=== PATIENT | male | born 1950 | race Caucasian/White ===

== ENCOUNTER 2018-05-18 04:53 | Emergency (ER) | payer OTHER ==
[~2018-05-18] VITALS: Ht 182.9 cm; Wt 75.8 kg
[~2018-05-18 04:53] MED LIST: ASPIR-LOW 81 MG81 MG PO; PRAVACHOL40 MG PO
[2018-05-18] MEDS ORDERED: CRESTOR5 MG PO (05:07)
[2018-05-18] MEDS ORDERED: MICARDIS40 MG PO (05:07)
[2018-05-18] MEDS ORDERED: VITAMIN B-12500 MCG PO (05:08)
[2018-05-18 05:19] LABS: URINE BILIRUBIN NEGATIVE (Negative); URINE BLOOD NEGATIVE (Negative); URINE CLARITY CLEAR; URINE COLOR YELLOW; URINE GLUCOSE-RANDOM* NEGATIVE (Negative); URINE KETONES NEGATIVE (Negative); URINE LEUKOCYTES-REFLEX NEGATIVE (Negative); URINE NITRITE-REFLEX NEGATIVE (Negative); URINE PROTEIN (DIPSTICK) NEGATIVE (Negative); URINE UROBILINOGEN 0.2 E.U./dl (0.2-1.0)
[2018-05-18 05:23] LABS: ABSOLUTE NEUTROPHILS 6.1 thou/uL (1.4-8.2); BASOPHILS 0.5 % (0.0-2.0); EOSINOPHILS 3.3 % (0.0-3.0); HEMATOCRIT 43.6 % (42.0-52.0); HEMOGLOBIN 15.1 gm/dL (14.0-18.0); LYMPHOCYTES 21.1 % (24.0-44.0); MCH 33.1 pg (26.0-34.0); MCHC 34.7 g/dL (28.0-37.0); MCV 95.4 fL (80.0-100.0); MONOCYTES 7.1 % (1.0-8.0); PLATELET COUNT 137 thou/uL (150-400); RBC 4.57 mil/uL (4.50-6.00); RDW 13.4 % (10.5-14.5); WBC 8.9 thou/uL (4.0-11.0)
[2018-05-18 05:32] LABS: CREATININE 1.4 mg/dL (0.7-1.3); POTASSIUM 4.2 mmol/L (3.5-5.1)
[2018-05-18 05:37] LABS: ALBUMIN 4.4 g/dL (3.4-5.0); TOTAL BILIRUBIN 0.7 mg/dL (<0.1-1.0); TOTAL PROTEIN 7.6 g/dL (6.4-8.2)
[2018-05-18] MEDS ORDERED: TORADOL 10 MG T10 MG PO (06:59)
[2018-05-18] MEDS ORDERED: FLOMAX0.4 MG PO (06:59)
[2018-05-18] MEDS ORDERED: ZOFRAN ODT4 MG DISSOLVE (07:03)
[2018-05-18 07:25] VITALS: BP 139/67
--- NOTE | 2018-05-19 21:58 | EKG ---
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 : 1950 Requested By: Leo Leos Order Number: [id number] MD: Manny Campuzano Measurements Intervals [place] Rate: 54 P: 100 NH: 212 QRS: 54 QRSD: 95 T: 69 QT: 468 QTc: 444 Interpretive Statements Sinus rhythm Borderline prolonged NH interval Probable left atrial enlargement Left ventricular hypertrophy Compared to ECG 06/17/2009 18:00:53 Electronically Signed On 05-19-2018 21:57:45 [employer] by Manny Campuzano [email or web address] <ELECTRONICALLY SIGNED> By: Manny Campuzano MD 05/19/18 [phone] [id number] Manny Campuzano MD /FCO
== END 2018-05-18 07:25 | disposition home or self-care (01) ==
LOC: ER 04:53
PROVIDERS: Emergency Medicine
DX: N20.0 Calculus of kidney (principal); K59.00 Constipation, unspecified; I10 Essential (primary) hypertension; E78.00 Pure hypercholesterolemia, unspecified